=== PATIENT | male | born 1980 | race Caucasian/White ===

== ENCOUNTER → 2020-12-30 12:53 | Outpatient (BNVA) | payer BC, SELFPAY | PROVIDERS: PCP Family Medicine; Visit Provider Internal Medicine ==

== ENCOUNTER 2021-05-22 12:18 | Outpatient (REF) | payer BC, SELFPAY ==
[2021-05-22 12:44] LABS: MANUAL DIFF FLAG NO
[2021-05-22 13:03] LABS: Basophils Absolute Auto 0.1 X10*3/uL (0.0-0.2); Basophils Percent Auto 0.6 % (0-2); Eosinophils Absolute Auto 0.1 X10*3/uL (0.0-0.4); Eosinophils Percent Auto 0.7 % (0-4); Hematocrit 43.4 % (42-52); Imm Gran Abs Auto 0.07 X10*3/uL (0.00-0.03); Imm Gran Pct Auto 0.7 % (0.0-0.4); Lymphocytes Absolute Auto 2.6 X10*3/uL (1.2-4.9); Mean Corpuscular HGB Conc 32.3 g/dl (31.0-36.0); Mean Platelet Volume 12.3 fL (9.4-12.4); Monocytes Absolute Auto 0.8 X10*3/uL (0.1-1.2); Monocytes Percent Auto 7.7 % (2-11); Neutrophils Absolute Auto 6.9 X10*3/uL (2.0-8.3); Neutrophils Percent Auto 65.3 % (45-73); Platelet Count 246 X10*3/uL (160-400); Red Blood Count 4.52 X10*6/uL (4.60-5.80); Red Cell Distribution Width 12.4 % (11.0-16.0); White Blood Count 10.5 X10*3/uL (4.8-10.8)
[2021-05-22 13:27] LABS: Alanine Aminotransferase 25 U/L (0-40); Albumin Level 5.1 g/dL (3.5-5.0); Alkaline Phosphatase 61 U/L (39-117); Anion Gap 12 (12-20); Aspartate Amino Transferase 25 U/L (5-37); Bilirubin Direct 0.2 mg/dL (0.0-0.5); Bilirubin Total 0.5 mg/dL (0.0-1.0); Blood Urea Nitrogen 22 mg/dL (9-16); Calcium 10.1 mg/dL (8.4-10.2); Carbon Dioxide 29 mmol/L (22-29); Chloride 105 mmol/L (96-108); Estimated Glomerular Filt Rate > 60; Glucose Random 91 mg/dL (60-115); Potassium 4.9 mmol/L (3.3-5.1); Sodium 141 mmol/L (135-145); Total Protein 7.4 g/dL (6.5-8.0)
[2021-05-23 03:22] LABS: Syphilis Screen Nonreactive (Nonreactive)
[2021-05-23 03:24] LABS: ~HepC Num1 0.09 S/CO (0.00-0.79); ~Hepatitis C Antibody Nonreactive (Nonreactive)
[2021-05-23 12:46] LABS: Absolute CD3 Count 1832 cells/uL (840-3060); Absolute CD4 Count 1176 cells/uL (490-1740); Absolute CD8 Count 631 cells/uL (180-1170); Absolute Lymphocytes 2419 cells/uL (850-3900); CD4 CD8 Ratio 1.86 (0.86-5.00); Percent CD3 Cells 76 % (57-85); Percent CD4 Cells 49 % (30-61); Percent CD8 Cells 26 % (12-42)
[2021-05-25 11:56] LABS: HIV RNA PCR Qn Copies <20 DETECTED copies/mL (NOT DETECTED); HIV RNA PCR Qn Log Copies <1.30 DETECTED (NOT DETECTED)
== END 2021-05-22 12:19 | disposition home or self-care (01) ==
LOC: HO.LAB 12:18
PROVIDERS: PCP Family Medicine; Visit Provider Internal Medicine
DX: B20 Human immunodeficiency virus [HIV] disease (principal)
CPT/HCPCS: 36415; 80048; 80076; 85025; 86359; 86360; 86780; 86803; 87536

== ENCOUNTER → 2021-06-03 11:21 | Outpatient (BNVA) | payer BC, SELFPAY | PROVIDERS: Visit Provider Internal Medicine ==

== ENCOUNTER 2021-12-09 11:05 | Outpatient (REF) | payer BC, SELFPAY ==
[2021-12-10 06:07] LABS: Syphilis Screen Nonreactive (Nonreactive)
[2021-12-10 22:32] LABS: HIV RNA PCR Qn Copies NOT DETECTED copies/mL (NOT DETECTED); HIV RNA PCR Qn Log Copies NOT DETECTED (NOT DETECTED)
[2021-12-11 15:41] LABS: Absolute CD3 Count 1545 cells/uL (840-3060); Absolute CD4 Count 972 cells/uL (490-1740); Absolute CD8 Count 561 cells/uL (180-1170); Absolute Lymphocytes 2238 cells/uL (850-3900); CD4 CD8 Ratio 1.73 (0.86-5.00); Percent CD3 Cells 69 % (57-85); Percent CD4 Cells 43 % (30-61); Percent CD8 Cells 25 % (12-42)
== END 2021-12-09 11:06 | disposition home or self-care (01) ==
LOC: HO.LAB 11:05
PROVIDERS: PCP Family Medicine; Visit Provider Internal Medicine
DX: B20 Human immunodeficiency virus [HIV] disease (principal)
CPT/HCPCS: 36415; 86359; 86360; 86780; 87536

== ENCOUNTER → 2021-12-16 10:43 | Outpatient (BNVA) | payer BC, SELFPAY | PROVIDERS: Visit Provider Internal Medicine | DX: Z13.89 Encounter for screening for other disorder (principal) ==

== ENCOUNTER 2022-06-02 12:02 | Outpatient (REF) | payer BC, SELFPAY ==
[2022-06-02 13:17] LABS: Hematocrit 44.1 % (42.0-52.0); Hemoglobin 14.3 g/dl (14.0-18.0); Mean Corpuscular HGB Conc 32.4 g/dl (31.0-36.0); Mean Corpuscular Hemoglobin 31.4 pg (27.0-33.0); Mean Corpuscular Volume 96.9 fL (80.0-98.0); Mean Platelet Volume 12.5 fL (9.4-12.4); Platelet Count 239 X10*3/uL (160-400); Red Blood Count 4.55 X10*6/uL (4.60-5.80); Red Cell Distribution Width 12.2 % (11.0-16.0); White Blood Count 13.1 X10*3/uL (4.8-10.8)
[2022-06-02 14:12] LABS: Alanine Aminotransferase 27 U/L (0-40); Alkaline Phosphatase 72 U/L (39-117); Anion Gap 17 (12-20); Aspartate Amino Transferase 22 U/L (5-37); Bilirubin Direct < 0.2 mg/dL (0.0-0.5); Bilirubin Total 0.4 mg/dL (0.0-1.0); Blood Urea Nitrogen 10 mg/dL (9-16); Carbon Dioxide 28 mmol/L (22-29); Chloride 103 mmol/L (96-108); Estimated Glomerular Filt Rate > 60; Glucose Random 94 mg/dL (60-115); Potassium 4.7 mmol/L (3.3-5.1); Sodium 143 mmol/L (135-145); Total Protein 7.4 g/dL (6.5-8.0)
[2022-06-03 04:27] LABS: ~HepC Num1 0.15 S/CO (0.00-0.79); ~Hepatitis C Antibody Nonreactive (Nonreactive)
[2022-06-03 05:26] LABS: Syphilis Screen Nonreactive (Nonreactive)
[2022-06-04 12:53] LABS: Absolute CD3 Count 1321 cells/uL (840-3060); Absolute CD4 Count 838 cells/uL (490-1740); Absolute CD8 Count 437 cells/uL (180-1170); Absolute Lymphocytes 1909 cells/uL (850-3900); CD4 CD8 Ratio 1.92 (0.86-5.00); Percent CD3 Cells 69 % (57-85); Percent CD4 Cells 44 % (30-61); Percent CD8 Cells 23 % (12-42)
== END 2022-06-02 12:03 | disposition home or self-care (01) ==
LOC: HO.LAB 12:02
PROVIDERS: PCP Family Medicine; Visit Provider Internal Medicine
DX: B20 Human immunodeficiency virus [HIV] disease (principal)
CPT/HCPCS: 36415; 80048; 80076; 85027; 86359; 86360; 86780; 86803

== ENCOUNTER 2022-06-16 10:53 | Outpatient (REF) | payer BC, SELFPAY ==
[2022-06-17 19:27] LABS: HIV RNA PCR Qn Copies NOT DETECTED copies/mL (NOT DETECTED); HIV RNA PCR Qn Log Copies NOT DETECTED (NOT DETECTED)
== END 2022-06-16 10:54 | disposition home or self-care (01) ==
LOC: HO.LAB 10:53
PROVIDERS: PCP Family Medicine; Visit Provider Internal Medicine
DX: B20 Human immunodeficiency virus [HIV] disease (principal)
CPT/HCPCS: 36415; 87536